=== PATIENT | female | born 1995 | race Hispanic/Latino ===

== ENCOUNTER 2017-10-27 11:02 | Emergency (ER) | payer MEDICAID, OTHER | END 2017-10-27 12:28 | disposition home or self-care (01) | LOC: EDH 11:02 | DX: N75.1 Abscess of Bartholin's gland (principal); Z98.890 Other specified postprocedural states | CPT/HCPCS: 56420 ==

== ENCOUNTER 2019-01-25 15:41 | Inpatient (IN) | payer OTHER ==
[~2019-01-25] VITALS: Ht 160 cm; Wt 83.0 kg
[2019-01-25 17:19] LABS: APPEARANCE,URINE SL CLOUDY (CLEAR); BASOPHILS % (AUTO) 0.3 % (0.0-5.0); BILIRUBIN,URINE SMALL (NEGATIVE); COLOR,URINE YELLOW (YELLOW); EOSINOPHILS % (AUTO) 0.6 % (0.0-8.0); GLUCOSE, URINE (UA) NEGATIVE (NEGATIVE); HEMATOCRIT 40.5 % (36-48); KETONES,URINE >=80 mg/dL (NEGATIVE); LEUKOCYTE ESTERASE ,URINE NEGATIVE (NEGATIVE); LYMPHOCYTES % (AUTO) 8.5 % (21.0-51.0); MEAN CORPUSCULAR HEMOGLOBIN 30.2 pg (27.0-33.0); MEAN CORPUSCULAR HGB CONC 33.6 g/dL (32.0-36.0); MEAN CORPUSCULAR VOLUME 89.9 fL (79-99); MONOCYTES % (AUTO) 4.6 % (3.0-13.0); NITRATE,URINE NEGATIVE (NEGATIVE); OCCULT BLOOD,URINE SMALL (NEGATIVE); PH,URINE 7.5 (5.0-8.0); PLATELET COUNT (AUTO) 301 K/uL (130-400); PROTEIN,URINE TRACE mg/dL (NEGATIVE); RED BLOOD CELL COUNT(AUTO) 4.51 MIL/uL (4.00-5.50); WHITE BLOOD COUNT (AUTO) 19.9 K/uL (4.8-10.8)
[2019-01-25 17:28] LABS: BACTERIA,URINE Few /HPF (None Seen); WBC,URINE 0-1 /HPF (0-1)
[2019-01-25 17:29] LABS: MUCUS,URINE Moderate LPF (None Seen); SQUAMOUS EPITHELIAL CELL,UR Moderate /HPF (0-2)
[2019-01-25 17:40] LABS: ALBUMIN 3.4 g/dL (3.5-5.0); BILIRUBIN,TOTAL 0.4 mg/dL (0.2-1.0); CREATININE 0.5 mg/dL (0.5-1.5); POTASSIUM 3.4 mmol/L (3.5-5.1)
[2019-01-25 17:41] LABS: HCG,QUAL RESULT NEGATIVE (NEGATIVE)
[2019-01-25 17:45] LABS: INR 1.02 (0.85-1.15); PARTIAL THROMBOPLASTIN TIME 31.5 SEC (26.3-35.5); PROTHROMBIN TIME 10.7 SEC (9.6-11.6)
[2019-01-25] MEDS ORDERED: CEFTRIAXONE SODIUM 1 GM ONE (18:21)
[2019-01-25] MEDS ORDERED: ONDANSETRON HCL 4 MG/2 ML VIAL ONE ×2 (18:21→20:17)
[2019-01-25] MEDS ORDERED: MORPHINE SULFATE 4 MG/1ML SYG ONE (18:21)
[2019-01-25] MEDS ORDERED: SODIUM CHLORIDE 0.9% 1000ML 1,000 ML IV ONE (18:22)
[2019-01-25] MEDS ORDERED: AMPICILLIN SODIUM/SULBACTAM NA 1.5GM VIAL ONE ×2 (19:17→23:57)
[2019-01-25] MEDS ORDERED: SODIUM CHLORIDE 0.9% 50 ML IV ONE (19:18)
[2019-01-25] MEDS ORDERED: MORPHINE SULFATE 2 MG/ML 1ML SYG ONE (20:18)
[2019-01-25 21:10] VITALS: BP 129/63
[2019-01-25] MEDS ORDERED: PROMETHAZINE HCL 25 MG/ML 1ML AMPULE IM PRN (22:00)
[2019-01-25] MEDS ORDERED: MEPERIDINE HCL/PF 25 MG/0.5 ML AMPUL SQ PRN (22:00)
[2019-01-25] MEDS ORDERED: MEPERIDINE HCL/PF 25 MG/0.5 ML AMPUL IVP PRN (22:00)
[2019-01-25 23:35] VITALS: BP 114/65
[2019-01-25] MEDS ORDERED: MEPERIDINE-PF 50 MG/ML SYG ONE (23:42)
[2019-01-25] MEDS: LACTATED RINGERS 1000ML 1,000 ML IV SCH (23:45)
[2019-01-26 04:08] VITALS: BP 118/63
[2019-01-26] MEDS: UNASYN 1.5GM+NS 100ML 100 ML IV SCH ×4 (06:00→17:59)
[2019-01-26] MEDS ORDERED: MEPERIDINE-PF 50 MG/ML SYG ONE (06:05)
[2019-01-26 07:20] LABS: HEMATOCRIT 35.8 % (36-48); MEAN CORPUSCULAR HEMOGLOBIN 30.1 pg (27.0-33.0); MEAN CORPUSCULAR HGB CONC 33.2 g/dL (32.0-36.0); MEAN CORPUSCULAR VOLUME 90.8 fL (79-99); PLATELET COUNT (AUTO) 273 K/uL (130-400); RED BLOOD CELL COUNT(AUTO) 3.95 MIL/uL (4.00-5.50); RED CELL DISTRIBUTION WIDTH 13.8 % (11.0-15.5); WHITE BLOOD COUNT (AUTO) 17.9 K/uL (4.8-10.8)
[2019-01-26 07:37] LABS: ALBUMIN 2.8 g/dL (3.5-5.0); BILIRUBIN,TOTAL 0.5 mg/dL (0.2-1.0); CREATININE 0.5 mg/dL (0.5-1.5); POTASSIUM 4.1 mmol/L (3.5-5.1); TOTAL PROTEIN, SERUM 6.2 g/dL (6.0-8.3)
[2019-01-26 07:39] VITALS: BP 116/63
--- NOTE | 2019-01-26 07:55 | NUR ---
Patient assessed and on perineal assessment, left labia appears very swollen and patient states causing sharp pain to area of a seven on scale of Addendum: 01/26/19 at 0938 by DANUTA GRESHAM RN 0 to 10.
--- NOTE | 2019-01-26 08:15 | NUR ---
Dr. Lew rounded and new orders given for care of patient after assessing inflamation to left labia. Cleocin 900mgs every 8 hours added to antibiotics and po pain meds of vicodin 2 tabs po q6h. CBC with diff ordered for tomorrow a.m. and patient could start a regular diet and NPO after midnight. Orders placed and Cleocin was hung.
[2019-01-26] MEDS: LACTATED RINGERS 1000ML 1,000 ML IV SCH ×2 (08:48→17:25)
[2019-01-26] MEDS: CLINDAMYCIN 900 MG/D5% WATER 50 ML IV SCH ×2 (08:54→17:25)
[2019-01-26] MEDS: HYDROCODONE/ACETAMINOPHEN 5/325 MG TAB PO PRN ×2 (08:59→17:33)
[2019-01-26 11:29] VITALS: BP 98/51
[2019-01-26 15:10] VITALS: BP 108/69
[2019-01-26 19:28] VITALS: BP 126/62
--- NOTE | 2019-01-26 19:50 | NUR ---
LEFT LABIA LEFT LABIA SWOLLEN, NO DRAINAGE NOTED Addendum: 01/27/19 at 0256 by SAM DRAKE LVN Amended: Links added.
[2019-01-26 23:48] VITALS: BP 114/54
[2019-01-27] MEDS: UNASYN 1.5GM+NS 100ML 100 ML IV SCH ×4 (00:05→18:03)
[2019-01-27] MEDS: CLINDAMYCIN 900 MG/D5% WATER 50 ML IV SCH ×4 (00:05→23:35)
[2019-01-27 04:00] VITALS: BP 111/65
[2019-01-27] MEDS: LACTATED RINGERS 1000ML 1,000 ML IV SCH ×3 (04:56→20:59)
[2019-01-27 07:07] LABS: BASOPHILS % (AUTO) 0.3 % (0.0-5.0); EOSINOPHILS % (AUTO) 0.7 % (0.0-8.0); HEMATOCRIT 34.1 % (36-48); LYMPHOCYTES % (AUTO) 14.3 % (21.0-51.0); MEAN CORPUSCULAR HEMOGLOBIN 30.2 pg (27.0-33.0); MEAN CORPUSCULAR HGB CONC 33.2 g/dL (32.0-36.0); MEAN CORPUSCULAR VOLUME 91.2 fL (79-99); MONOCYTES % (AUTO) 6.8 % (3.0-13.0); NEUTROPHILS % (AUTO) 77.9 % (40.0-77.0); PLATELET COUNT (AUTO) 285 K/uL (130-400); RED BLOOD CELL COUNT(AUTO) 3.74 MIL/uL (4.00-5.50); RED CELL DISTRIBUTION WIDTH 13.8 % (11.0-15.5); WHITE BLOOD COUNT (AUTO) 15.3 K/uL (4.8-10.8)
[2019-01-27 07:15] VITALS: BP 112/59
--- NOTE | 2019-01-27 07:40 | NUR ---
YANIV DEL REAL LVN AND MYSELF ASSESSED PT'S LEFT LABIA, VERY SWOLLEN/EDEMATOUS, TENDER, SHINY AREAS NOTED, WARM TO TOUGH; PT C/O OF SHARP PAIN TO AREA, 7 OUT OF 10 ON PAIN SCALE, WILL MEDICATE ACCORDINGLY
[2019-01-27] MEDS: HYDROCODONE/ACETAMINOPHEN 5/325 MG TAB PO PRN ×2 (08:00→15:46)
[2019-01-27 11:13] VITALS: BP 104/66
--- NOTE | 2019-01-27 13:20 | NUR ---
PICTURES PICTURES TAKEN OF LEFT LABIA FOR INITIAL VIEW OF BARTHOLIN'S CYST; PT WILL HAVE AN I&D SCHEDULED IN AM Addendum: 01/27/19 at 1652 by ISAAC MUNROE RN 1520 PICTURES TAKEN AT 1520, NOT 1320; INCORRECT TIME NOTED BUT CORRECT TIME ON PICTURES IN CHART
[2019-01-27] MEDS: IBUPROFEN 600 MG TABLET PO SCH ×2 (13:53→19:18)
--- NOTE | 2019-01-27 14:05 | NUR ---
ACTIVITY PT AMBULATED TO ROOM 112, THEN STRAIGHT TO BATHROOM, SITZ BATH TAUGHT WITH TEACH BACK COMPLETED, DEMONSTRATION COMPLETED, PT TOLERATED WELL AND VERBALIZED COMFORT
[2019-01-27 15:21] VITALS: BP 113/53
--- NOTE | 2019-01-27 15:28 | NUR ---
CONSENT CONSENT READ TO PT, PT VERBALIZED UNDERSTANDING AND SIGNED CONSENT FOR UPCOMING I&D IN AM
--- NOTE | 2019-01-27 19:05 | NUR ---
Bedside RACHNA w/Yoli Cee RN; explaining will assess labial cyst if pt permits, pt voices understanding and agrees to assessment. Left Labia noted w/moderated swelling, & redness; no drainage or open wound noted to site; pt reports less discomfort at present. Addendum: 01/28/19 at 0139 by AMI HERNANDEZ RN RN Amended: Links added.
--- NOTE | 2019-01-27 19:15 | NUR ---
Reinforcing teaching on plan of care tonight with planned I&D in am; explaining regular diet tonight & NPO after midnight and scheduled antibiotics at midnight, Ibuprofen@0130& 0700,& Unasyn again@ 0600; Instructing to call for any concerns or s/s of infections: fever, chills or pain;informing of pain management options available; Pt voices understanding & agrees to teaching. Nurse call button within reach, bed down & wheels locked. Addendum: 01/28/19 at 0003 by AMI HERNANDEZ RN RN Amended: Links added.
--- NOTE | 2019-01-27 19:30 | NUR ---
Pt requesting to shower tonight, preparing bathroom & providing toiletries for shower. IV saline locked & covered. Pt to bathroom with slow steady gait noted. Denies need for assistance. Addendum: 01/27/19 at 8734 by AMI HERNANDEZ RN RN Amended: Links added.
[2019-01-27 20:00] VITALS: BP 112/68
--- NOTE | 2019-01-27 20:15 | NUR ---
Pt out of shower, denies pain at present, states "it only hurts when I walk or move", encouraging freq position changes & ambulating as tolerated; explaining plan for TEDS application, pt voices understanding and agrees to TEDS; states "my legs have been hurting a little", reassuring with negative Homans Sign, & instructing on VTE precautions/signs & symptoms. Addendum: 01/28/19 at 0014 by AMI HERNANDEZ RN RN Amended: Links added.
--- NOTE | 2019-01-27 23:35 | NUR ---
Vital signs taken and reported to pt; Reinforcing teaching Cleocin ivpb to be given now; pt voices understanding. See eMAR
[2019-01-27 23:38] VITALS: BP 119/59
[2019-01-28] VITALS (20 sets, daily range): BP systolic 93–125; BP diastolic 43–80
[2019-01-28] MEDS ORDERED: AMPICILLIN SODIUM/SULBACTAM NA 1.5GM VIAL ONE ×2 (00:26→05:48)
[2019-01-28] MEDS: UNASYN 1.5GM+NS 100ML 100 ML IV SCH ×2 (00:34→06:52)
[2019-01-28] MEDS: IBUPROFEN 600 MG TABLET PO SCH ×4 (00:35→20:15)
--- NOTE | 2019-01-28 00:40 | NUR ---
Pt reports soreness to labia, explaining scheduled dose Motrin due now and will given Unasyn IV as scheduled; pt voices understanding & agrees to plan.
[2019-01-28] MEDS: LACTATED RINGERS 1000ML 1,000 ML IV SCH ×2 (04:15→10:41)
--- NOTE | 2019-01-28 06:00 | NUR ---
Reinforcing teaching on pre-op & intra operative care and post op care. Pt voices understanding & agrees to teaching
--- NOTE | 2019-01-28 06:45 | NUR ---
Pt awake and alert, informing of scheduled Ibuprofen now, plan to apply SCD's due to procedure today; pt agrees to plan. Calf high SCD's applied, Motrin po given. Pt denies questions at present. Addendum: 01/28/19 at 2145 by AMI HERNANDEZ RN RN Amended: Links added.
[2019-01-28 06:51] LABS: BASOPHILS % (AUTO) 0.3 % (0.0-5.0); EOSINOPHILS % (AUTO) 2.2 % (0.0-8.0); HEMATOCRIT 31.2 % (36-48); LYMPHOCYTES % (AUTO) 15.9 % (21.0-51.0); MEAN CORPUSCULAR HEMOGLOBIN 31.2 pg (27.0-33.0); MEAN CORPUSCULAR HGB CONC 34.1 g/dL (32.0-36.0); MEAN CORPUSCULAR VOLUME 91.4 fL (79-99); MONOCYTES % (AUTO) 7.1 % (3.0-13.0); NEUTROPHILS % (AUTO) 74.5 % (40.0-77.0); PLATELET COUNT (AUTO) 258 K/uL (130-400); RED BLOOD CELL COUNT(AUTO) 3.41 MIL/uL (4.00-5.50); RED CELL DISTRIBUTION WIDTH 13.6 % (11.0-15.5); WHITE BLOOD COUNT (AUTO) 12.6 K/uL (4.8-10.8)
--- NOTE | 2019-01-28 07:10 | NUR ---
SBAR report given to Nissa Luz RNC.
[2019-01-28 07:45] LABS: HEMOGLOBIN A1C 5.2 % (4.0-6.0)
[2019-01-28] MEDS ORDERED: LIDOCAINE HCL 1% 20 ML VIAL INJ SCH (08:00)
[2019-01-28] MEDS: CLINDAMYCIN 900 MG/D5% WATER 50 ML IV SCH (08:10)
--- NOTE | 2019-01-28 08:50 | NUR ---
SURGERY TAKEN TO SURGERY VIA BED BY KITTY BETANCOURT RN IN STABLE CONDITION.
[2019-01-28] MEDS ORDERED: MEPERIDINE-PF 25 MG/ML SYG ONE (09:05)
[2019-01-28] MEDS ORDERED: MIDAZOLAM HCL 1 MG/ML 2ML VIAL ONE (10:00)
[2019-01-28] MEDS ORDERED: BUPIVACAINE/EPI/PF 0.5% 30ML VIAL IJ ONE (10:23)
[2019-01-28] MEDS ORDERED: ONDANSETRON HCL 4 MG/2 ML VIAL ONE (10:30)
[2019-01-28] MEDS ORDERED: DEXAMETHASONE SOD PHOSPHATE 10MG/ML 1ML VIAL ONE (10:30)
[2019-01-28] MEDS ORDERED: COMPOUND IV REFRIGERATED 1 EACH IVSOLN MISC PRN (11:15)
--- NOTE | 2019-01-28 11:30 | NUR ---
POST-OP ARRIVED TO ROOM 112 VIA BED FROM PACU IN STABLE CONDITION. CURRENTLY DENIES ANY PAIN/DISCOMFORT. LEFT LABIA INTACT. EDEMA TO LEFT LABIA REDUCED. PRIMARY NURSE AT BEDSIDE.
--- NOTE | 2019-01-28 11:30 | NUR ---
assessment: Received from pacu post op i&d of bartholyn cyst , labial abscess. Via bed to 312, Pt drowsy, explained poc and understanding verbalized. Denies pain. call platt at her side.
--- NOTE | 2019-01-28 11:35 | NUR ---
I&D OF BARTHOLYN CYST: LEFT LABIA SOFT TO TOUCH WITH SWELLING. NO DRAINAGE NOTED.
[2019-01-28] MEDS: VANCOMYCIN 1.25 GM in SODIUM CHLORIDE 0.9% 250 ML IV SCH ×2 (11:59→23:56)
[2019-01-28] MEDS: ZOSYN 3.375GM+NS 50ML 50 ML IV SCH ×3 (12:00→20:42)
--- NOTE | 2019-01-28 14:18 | NUR ---
ELIMINATION: AMB TO BR, STEADY GAIT. VOIDED 600MLS DK YELLOW URINE. INSTRUCTED ON PATTIE CARE AND RETURNED DEMONSTRATION.
--- NOTE | 2019-01-28 14:25 | NUR ---
REST: BACK IN BED, NOTED SM AMTS PINK DISCHARGE FROM LABIA, PATTIE PAD ON AND PANTIES. PT STATES AREA TENDER.
[2019-01-29] VITALS (7 sets, daily range): BP systolic 111–143; BP diastolic 64–88
[2019-01-29] MEDS: IBUPROFEN 600 MG TABLET PO SCH ×4 (02:24→20:16)
[2019-01-29] MEDS: ZOSYN 3.375GM+NS 50ML 50 ML IV SCH ×3 (03:53→20:16)
[2019-01-29] MEDS: VANCOMYCIN 1.25 GM in SODIUM CHLORIDE 0.9% 250 ML IV SCH (11:47)
[2019-01-29] MEDS: LACTATED RINGERS 1000ML 1,000 ML IV SCH ×2 (14:54→23:51)
[2019-01-30] MEDS: VANCOMYCIN 1.25 GM in SODIUM CHLORIDE 0.9% 250 ML IV SCH (00:55)
[2019-01-30] MEDS: IBUPROFEN 600 MG TABLET PO SCH ×4 (02:29→21:27)
[2019-01-30] MEDS: ZOSYN 3.375GM+NS 50ML 50 ML IV SCH (03:45)
[2019-01-30 03:55] VITALS: BP 82/49
[2019-01-30 07:50] VITALS: BP 126/82
[2019-01-30 07:53] LABS: HEMATOCRIT 34.5 % (36-48); MEAN CORPUSCULAR VOLUME 91.1 fL (79-99); PLATELET COUNT (AUTO) 392 K/uL (130-400); RED BLOOD CELL COUNT(AUTO) 3.78 MIL/uL (4.00-5.50); RED CELL DISTRIBUTION WIDTH 13.8 % (11.0-15.5); WHITE BLOOD COUNT (AUTO) 8.6 K/uL (4.8-10.8)
[2019-01-30] MEDS ORDERED: VANCOMYCIN 1.25 GM in SODIUM CHLORIDE 0.9% 250 ML IV SCH (08:00)
[2019-01-30] MEDS: LACTATED RINGERS 1000ML 1,000 ML IV SCH ×2 (08:53→18:46)
[2019-01-30 12:10] VITALS: BP 140/83
[2019-01-30] MEDS: CEPHALEXIN 500 MG CAPSULE PO SCH ×3 (12:55→21:28)
[2019-01-30] MEDS ORDERED: DEXAMETHASONE SOD PHOSPHATE 4 MG/ML 1ML VIAL IVP SCH (13:00)
[2019-01-30 16:22] VITALS: BP 125/85
[2019-01-30 19:35] VITALS: BP 128/78
[2019-01-30] MEDS: METRONIDAZOLE 500 MG TABLET PO SCH (21:28)
[2019-01-30] MEDS: SULFAMETHOX-TMP DS 800/160 TAB PO SCH (21:28)
[2019-01-30 23:59] VITALS: BP 122/65
[2019-01-31] MEDS: LACTATED RINGERS 1000ML 1,000 ML IV SCH (00:39)
[2019-01-31] MEDS: IBUPROFEN 600 MG TABLET PO SCH ×3 (03:26→15:20)
[2019-01-31 03:35] VITALS: BP 108/59
[2019-01-31 07:50] VITALS: BP 125/70
[2019-01-31] MEDS: CEPHALEXIN 500 MG CAPSULE PO SCH ×2 (09:23→15:20)
[2019-01-31] MEDS: SULFAMETHOX-TMP DS 800/160 TAB PO SCH (09:23)
[2019-01-31] MEDS: METRONIDAZOLE 500 MG TABLET PO SCH (09:23)
[2019-01-31 11:43] VITALS: BP 130/55
--- NOTE | 2019-01-31 15:30 | NUR ---
PHOTOS PHOTOS OF LEFT LABIA TAKEN PRIOR TO DISCHARGE. Addendum: 01/31/19 at 1541 by GEOFF MANUEL RN RN Amended: Links added.
--- NOTE | 2019-01-31 15:40 | NUR ---
DISCHARGE PT LEFT UNIT VIA WHEELCHAIR, ACCOMPANIED BY FRIEND. DENIED PAIN AND HAD NO COMPLAINTS. TRANSPORTED BY PERSONAL VEHICLE.
== END 2019-01-31 15:40 | disposition home or self-care (01) | DRG 747 ==
LOC: EDH 15:41 → EDHIP 15:42 → OBSVTOIN 15:42 → WSH 21:00
PROVIDERS: ADMIT Internal Medicine; ATTEND Internal Medicine
PROC: 0U9M0ZZ Drainage of Vulva, Open Approach (ICD-10-PCS; principal; 2019-01-28 09:00)
DX: N76.4 Abscess of vulva (principal)
CPT/HCPCS: 36415; 80053; 80202; 81001; 81025; 83036; 83605; 85025; 85027; 85610; 85730; 87040; 87070; 87076; 87205; A4351; A4606; G0378; J0295; J0696; J1100; J2175; J2250; J2270; J2405; J2543; J2550; J3370; J3490; J7030; J7120

== ENCOUNTER 2023-10-04 08:40 | Emergency (ER) | payer BC, MEDICAID ==
[~2023-10-04] VITALS: Ht 160 cm; Wt 87.1 kg
[2023-10-04 10:48] LABS: BASOPHILS # (AUTO) 0.05 K/uL (0.00-0.20); BASOPHILS % (AUTO) 0.2 % (0.0-5.0); EOSINOPHILS # (AUTO) 0.01 K/uL (0.00-0.70); HEMATOCRIT 36.2 % (36-48); LYMPHOCYTES # (AUTO) 2.1 K/uL (1.0-4.8); LYMPHOCYTES % (AUTO) 9.8 % (21.0-51.0); MEAN CORPUSCULAR HEMOGLOBIN 28.2 pg (27.0-33.0); MEAN CORPUSCULAR HGB CONC 33.4 g/dL (32.0-36.0); MEAN CORPUSCULAR VOLUME 84.4 fL (79-99); MONOCYTES # (AUTO) 1.1 K/uL (0.1-1.0); MONOCYTES % (AUTO) 5.1 % (3.0-13.0); NEUTROPHILS % (AUTO) 84.4 % (40.0-77.0); PLATELET COUNT (AUTO) 410 K/uL (130-400); RED BLOOD CELL COUNT(AUTO) 4.29 MIL/uL (4.00-5.50); RED CELL DISTRIBUTION WIDTH 14.4 % (11.0-15.5); WHITE BLOOD COUNT (AUTO) 21.3 K/uL (4.8-10.8)
[2023-10-04 11:09] LABS: CREATININE 0.6 mg/dL (0.5-1.5); POTASSIUM 3.6 mmol/L (3.5-5.1)
[2023-10-04 11:13] LABS: ALBUMIN 3.4 g/dL (3.5-5.0); BILIRUBIN,TOTAL 0.7 mg/dL (0.2-1.0)
[2023-10-04] MEDS: 0.9%NACL 1000ML 1,000 ML IV ONE (11:18)
[2023-10-04] MEDS: ONDANSETRON 4MG INJ IVP ONE (11:18)
[2023-10-04] MEDS: KETOROLAC 30MG VIAL (30MG/ML) IVP ONE (11:19)
[2023-10-04] MEDS: CEFTRIAXONE 1G VIAL IVPB ONE (12:22)
[2023-10-04] MEDS: METRONIDAZOLE 500 MG TABLET PO SCH (12:22)
[2023-10-04] MEDS ORDERED: SULF1TAB42 PO (14:48)
[2023-10-04] MEDS ORDERED: METR-172 PO (14:48)
[2023-10-04 15:19] VITALS: BP 129/64; PULSE 78; RESP 16; O2SAT 98
[2023-10-05] MEDS ORDERED: SULF1TAB42 PO (14:16)
== END 2023-10-04 15:21 | disposition home or self-care (01) ==
LOC: EDH 08:40
DX: N75.1 Abscess of Bartholin's gland (principal)
CPT/HCPCS: 99285; 96374; 96375; 96361; 80053; 85025; 87040 ×2; 83605; 36415; J7030; J0696; J2405; J1885

== ENCOUNTER 2023-10-05 11:32 | Emergency (ER) | payer BC, MEDICAID ==
[~2023-10-05] VITALS: Ht 160 cm; Wt 81.6 kg
[~2023-10-05 11:32] MED LIST: METR-172 PO; SULF1TAB42 PO
[2023-10-05] MEDS: METOCLOPRAMIDE 10 MG/2 ML VIAL IVP ONE (13:47)
[2023-10-05] MEDS: 0.9%NACL 1000ML 1,572 ML IV ONE (13:47)
[2023-10-05] MEDS: FAMOTIDINE 20MG VIAL IV ONE (13:47)
[2023-10-05] MEDS: CEFTRIAXONE 2GM VIAL IVPB ONE (13:47)
[2023-10-05] MEDS: MORPHINE 4 MG SYG IVP ONE (13:48)
[2023-10-05 13:53] LABS: BASOPHILS # (AUTO) 0.05 K/uL (0.00-0.20); BASOPHILS % (AUTO) 0.2 % (0.0-5.0); EOSINOPHILS # (AUTO) 0.01 K/uL (0.00-0.70); HEMATOCRIT 35.5 % (36-48); IMMATURE GRANULOCYTE ABSOLUTE 0.14 K/uL (0-1); LYMPHOCYTES # (AUTO) 1.9 K/uL (1.0-4.8); LYMPHOCYTES % (AUTO) 9.2 % (21.0-51.0); MEAN CORPUSCULAR HEMOGLOBIN 28.6 pg (27.0-33.0); MEAN CORPUSCULAR HGB CONC 33.2 g/dL (32.0-36.0); MEAN CORPUSCULAR VOLUME 86.2 fL (79-99); MONOCYTES # (AUTO) 1.1 K/uL (0.1-1.0); MONOCYTES % (AUTO) 5.1 % (3.0-13.0); NEUTROPHILS # (AUTO) 17.8 K/uL (1.8-7.7); NEUTROPHILS % (AUTO) 84.8 % (40.0-77.0); PLATELET COUNT (AUTO) 410 K/uL (130-400); RED BLOOD CELL COUNT(AUTO) 4.12 MIL/uL (4.00-5.50); RED CELL DISTRIBUTION WIDTH 14.3 % (11.0-15.5)
[2023-10-05 14:08] LABS: CREATININE 0.7 mg/dL (0.5-1.5); POTASSIUM 3.3 mmol/L (3.5-5.1)
[2023-10-05] MEDS: LIDOCAINE HCL 1% 20 ML VIAL ONE (14:13)
[2023-10-05] MEDS ORDERED: SULF1TAB42 PO (14:16)
[2023-10-05] MEDS: ONDANSETRON 4MG INJ IVP ONE (15:38)
[2023-10-05 16:40] VITALS: BP 110/52; PULSE 72; RESP 18; O2SAT 98
== END 2023-10-05 17:01 | disposition home or self-care (01) ==
LOC: EDH 11:32
DX: N76.4 Abscess of vulva (principal)
CPT/HCPCS: 99284; 96365; 96375; 80048; 85025; 87070; 87076; 36415; J3490; J7030; J0696; J2405; J2270; J2765

== ENCOUNTER 2024-06-20 15:10 | Emergency (ER) | payer BC, MEDICAID ==
[~2024-06-20] VITALS: Ht 157.5 cm; Wt 90.7 kg
[2024-06-20 16:01] VITALS: BP 130/76; PULSE 96; RESP 18; TEMP 98.1; O2SAT 100
[2024-06-20] MEDS ORDERED: CEPH500B PO (16:04)
[2024-06-20] MEDS: LIDOCAINE HCL 1% 20 ML VIAL ONE (16:21)
== END 2024-06-20 16:29 | disposition home or self-care (01) ==
LOC: EDH 15:10
DX: N75.1 Abscess of Bartholin's gland (principal); Z79.899 Other long term (current) drug therapy; Z98.890 Other specified postprocedural states
CPT/HCPCS: 56420